=== PATIENT | female | born 1990 | race Caucasian/White ===

== ENCOUNTER 2022-04-22 19:25 | Emergency (ER) | payer OTHER ==
--- NOTE | 2022-04-22 19:51 | ED Trauma-Burn/Chemical Inh ---
HPI-Trauma Burn/Chemical Inh General Stated Complaint: WC, R HAND FINGERS BURN Source: patient History of Present Illness Date Seen by Provider: Apr 22, 2022 Time Seen by Provider: 19:32 Initial Comments 31-year-old female presenting with complaints of burn with grease to her right hand and forearm. 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 She had got grease onto the back of her index middle and ring fingers. She also has a small burn to her right forearm. She has no blistering at this point but severe pain. There is mild redness and area that looks like it is about to blister. She is able to move her fingers but feels like there is some swelling. As well as she has pain when she tries to move her fingers. She is right-hand dominant. Occurred: just prior to arrival Burn Type: Scald Burn (Grease burn) Severity: severe Pain/Injury Location: upper extremity (Right hand and forearm) Loss of Consciousness: no loss of consciousness Associated Symptoms (Fall): No Abdominal Pain, No Chest Pain, No Confusion, No Dizziness, No Headache, No Lightheadedness, No Muscle Spasms, No Nausea/Vomiting, No Neck Pain, No Ringing in Ears, No Seizures, No Shortness of Air, No Slurred Speech, No Trouble Walking, No Vision Changes Allergies and Home Medications Allergies Coded Allergies: No Known Drug Allergies (Unverified , 02/05/22) Patient Home Medication List Home Medication List Reviewed: Yes Hydrocodone/Acetaminophen (Hydrocodone-Acetamin 5-325 mg) 5 Mg-325 Mg Tablet, 1 TAB PO Q6H PRN for PAIN-SEVERE (8-10) Prescribed by: MARY TREVIZO on 04/22/221952 Review of Systems Review of Systems Constitutional: No chills, No fever Eyes: No Symptoms Reported Ears: No Symptoms Reported Nose: No Symptoms Reported Mouth: No Symptoms Reported Throat: No Symptoms to Report Respiratory: no symptoms reported Cardiovascular: No Symptoms Reported Gastrointestinal: no symptoms reported Genitourinary: no symptoms reported Musculoskeletal: no symptoms reported Skin: see HPI Psychiatric/Neurological: Anxiety Past Zvlebpr-Mjqrhc-Nqcsot Hx Patient Social History Tobacco Use?: No Use of E-Cig and/or Vaping dev: No Alcohol Use?: No Immunizations Up To Date Second COVID19 Vaccination Andres: Pfizer, pt unsure of date Physical Exam-Burn/Chemical In Physical Exam Vital Signs Capillary Refill : Height, Weight, BMI Height: '" Weight: lbs. oz. kg; 31.00 BMI Method: General Appearance: WD/WN, mild distress Head: No Evidence of Injury Eyes: Bilateral Eye PERRL, Bilateral Eye EOMI Ears, Nose, Throat: Hearing Grossly Normal, No Evidence of ENT Injury Neck: non-tender, full range of motion, supple Cardiovascular: normal peripheral pulses Extremities: normal range of motion, normal capillary refill Neurologic/Psychiatric: no motor/sensory deficits, alert, oriented x 3 Skin: warm/dry, other (Erythema to the extensor surface of the right index, middle, ring fingers. There is blanching of the skin still. She has increased pain with movement and palpation. There is also a small linear burn that is erythematous on her right forearm on the flexor surface.) Eyal Coma Score Best Eye Response (Eyal): (4) Open Spontaneously Best Verbal Response ([place]): (5) Oriented Best Motor Response (Eyal): (6) Obeys Commands [place] Total: 15 Progress/Results/Core Measures Results/Orders My Orders Orders - MARY TREVIZO MD Wound Dressing-Ed (04/22/22 19:42) Rx-Hydrocodone/Apap 5-325 Mg (Rx-Vicodin (04/22/22 19:45) Medications Given in ED Current Medications Medications Dose Ordered Sig/Isabelle Route Start Time Stop Time Status Last Admin Dose Admin Acetaminophen/ Hydrocodone Bitart 1 ea Q4H PRN PO 04/22/22 19:45 04/22/22 19:55 1 EA Progress Progress Note : Progress Note Clean the alvarado and then dressed with antibiotic ointment and a clean dry dressing. Counseled on follow-up and return precautions. Advised to keep the dressing clean and dry while at work. Departure Impression Primary Impression: First degree burn multiple fingers right hand not including thumb Qualified Codes: T23.131A - Burn of first degree of multiple right fingers (nail), not including thumb, initial encounter Additional Impressions: Burn of first degree of right forearm, initial encounter Second degree burn of multiple fingers of right hand excluding thumb Qualified Codes: T23.231A - Burn of second degree of multiple right fingers (nail), not including thumb, initial encounter Disposition: 01 HOME, SELF-CARE Condition: Stable Departure-Patient Inst. Decision time for Depature: 19:53 Referrals: NO,LOCAL PHYSICIAN (PCP) [place] Care Physician [facility] [place] [facility] [place] [phone] to establish care or follow-up with the work comp clinic as directed by your employer Patient Instructions: Minor Skin Alvarado ED Add. Discharge Instructions: Keep the alvarado dressed with a clean dry dressing that you change at least once a day. You could continue to work but you will need to keep the dressing clean and dry. Watch for signs of infection or increased swelling and pain. Check back with work comp clinic for continued concerns Scripts Hydrocodone/Acetaminophen (Hydrocodone-Acetamin 5-325 mg) 5 Mg-325 Mg Tablet 1 TAB PO Q6H PRN for PAIN-SEVERE (8-10) for 3 Days, #12 TAB 0 Refills Prov: MARY TREVIZO MD 04/22/22 MARY TREVIZO MD Apr 22, 2022 19:51
[2022-04-22] MEDS ORDERED: ACHD5005 PO (19:52)
[2022-04-22 20:15] VITALS: BP 142/99
== END 2022-04-22 20:15 | disposition home or self-care (01) ==
LOC: EDUNIT# 19:25 → ER FS 19:27
DX: T23.231A Burn of second degree of multiple right fingers (nail), not including thumb, initial encounter (principal); T22.111A Burn of first degree of right forearm, initial encounter; X10.2XXA Contact with fats and cooking oils, initial encounter
CPT/HCPCS: 99282; A6223

== ENCOUNTER 2022-12-24 07:43 | Emergency (ER) | payer OTHER ==
[~2022-12-24 07:43] MED LIST: ACHD5005 PO
--- NOTE | 2022-12-24 08:17 | ED Head Injury ---
General Chief Complaint: Head/Cervical Problems Stated Complaint: [place]; HEAD INJ Nursing Triage Note: PT REPORTS SHE HIT THE BACK OF HER HEAD ON A SHELF LAST WEDNESDAY AND HAS HAD A HEADACHE OFF AND ON SINCE. LAST PM SHE FELT NAUSEATED SO SHE WENT TO URGENT CARE THIS AM AND THEY SENT HER TO ER. Source: patient History of Present Illness Date Seen by Provider: Dec 24, 2022 Time Seen by Provider: 07:55 Initial Comments 32-year-old female presenting with complaints of headache from head injury last at work. She states that she works at [email or web address] and had been bent over at work and when she went to stand up she accidentally hit her head against a metal rack on the back of her head. She denies any loss of consciousness. She was having severe pain right after the accident and had noticed some blurred vision in the next day. She has been able to work all this week but states that last night she started having some nausea and it was worse this morning when she got up. She felt like the nausea got worse after bending over and then standing back up. She did not have any actual emesis. She has not had anything for headache pain since last night around 7 PM. She had been taking acetaminophen and ibuprofen [id number] to help with her symptoms. She had gone to see urgent care this morning because of the nausea and when they asked her about the head injury they decided to have her come to the emergency department for further evaluation. She was not having any continued blurring or change in her vision, vomiting, dizziness, blood or fluid draining from her ears or nose. She does report that she uses a computer screen at work and by the middle of the afternoon and towards the end of her shift she would notice that she was getting worsening headache and some blurred vision. Occurred: last week (12/17) Severity: mild Location: occipital Method of Injury: direct blow Loss of Consciousness: no loss of consciousness Associated Systoms: No Chest Pain, No Cough, No Diaphoresis, No Fever/Chills; Headaches (mild 1 out of 10 today); No Loss of Appetite, No Malaise, No Rash, No Seizure, No Shortness of Air, No Syncope, No Weakness Allergies and Home Medications Allergies Coded Allergies: No Known Drug Allergies (Unverified , 02/05/22) Patient Home Medication List Home Medication List Reviewed: Yes Discontinued Medications Hydrocodone/Acetaminophen (Hydrocodone-Acetamin 5-325 mg) 5 Mg-325 Mg Tablet, 1 TAB PO Q6H PRN for PAIN-SEVERE (8-10) Prescribed by: MARY TREVIZO on 04/22/221952 Last Action: Discontinued Review of Systems Review of Systems Constitutional: No chills, No dizziness, No fever Eyes: See HPI; Denies Photophobia, Denies Vision Changes Ears, Nose, Mouth, Throat: denies ear pain, denies ear discharge, denies nose pain, denies nose discharge, denies epistaxis Cardiovascular: no symptoms reported Gastrointestinal: see HPI Genitourinary: no symptoms reported Musculoskeletal: no symptoms reported Skin: no symptoms reported Psychiatric/Neurological: See HPI; Denies Numbness, Denies Weakness Endocrine: No Symptoms Reported Hematologic/Lymphatic: No Symptoms Reported; Denies Blood Clots, Denies Easy Bleeding, Denies Easy Bruising Past Bgdxkyj-Yxvxuu-Axdmrg Hx Patient Social History Tobacco Use?: No Use of E-Cig and/or Vaping dev: No Substance use?: No Alcohol Use?: No Pt feels they are or have been: No Immunizations Up To Date First/Initial COVID19 Vaccinat: June 2021 Second COVID19 Vaccination Andres: September 2021 Third COVID19 Vaccination Date: June 2021 Past Medical History Surgeries: No Physical Exam Vital Signs Vital Signs - First Documented 12/24/22 07:54 Temp 36.4 Pulse 71 Resp 16 B/P (MAP) 149/109 (122) Pulse Ox 99 O2 Delivery Room Air Capillary Refill : Less Than 3 Seconds Height, Weight, BMI Height: '" Weight: lbs. oz. kg; BMI Method: General Appearance: WD/WN, no apparent distress HEENT: PERRL/EOMI, normal ENT inspection, TMs normal, pharynx normal; No photophobia; other (Negative valdez sign, negative raccoon sign, no CSF otorrhea, no CSF rhinorrhea. She had mild tenderness to palpation on the left upper occipital area of her back of the head. There is no step-off or crepitus) Neck: non-tender, full range of motion, supple, normal inspection Cardiovascular: normal peripheral pulses, regular rate, rhythm Respiratory: chest non-tender, lungs clear, normal breath sounds Gastrointestinal: normal bowel sounds, non tender, soft, no pulsatile mass Extremities: normal range of motion, non-tender, normal capillary refill Psychiatric: alert, oriented x 3 Cra[place] Nerves: normal hearing, normal speech, PERRL Coordination/Gait: normal gait Motor/Sensory: no motor deficit, no sensory deficit Skin: normal color, warm/dry [place] Coma Score Best Eye Response: (4) Open Spontaneously Best Verbal Response: (5) Oriented Best Motor Response: (6) Obeys Commands Eyal Total: 15 Images 1 - Mildly tender to palpation on the left upper occipital area for school. No crepitus or step-off noted. Negative valdez sign, negative raccoon sign Progress/Results/Core Measures Results/Orders Vital Signs/I&O 12/24/22 12/24/22 07:54 08:18 Temp 36.4 36.4 Pulse 71 71 Resp 16 16 B/P (MAP) 149/109 (122) 149/109 Pulse Ox 99 99 O2 Delivery Room Air Room Air Blood Pressure Mean: 122 Progress Progress Note : Progress Note Potential diagnosis of calvarium fracture, intracranial hemorrhage, concussion, traumatic brain injury. On physical exam and through history patient did not have any loss of consciousness, amnesia about the event, vomiting. I reassured the patient that on exam and through her history she was not exhibiting any signs or indication of a skull fracture or intracranial hemorrhage. I informed her that a concussion could still have similar symptoms. Based off of review of the [place] CT head rules as well as [place] criteria for head injury and traumatic brain injury she was not meeting any criteria to have a CT scan of her head to evaluate for intracranial hemorrhage or skull fracture. Counseled on management of concussion symptoms and advised to limit screen time as well as get plenty of rest and drink plenty of fluids. She states that she already has a prescription for Zofran from urgent care that was sent to [facility]. She denied needing medication while she was here in the ED. Will provide a work note advising her to be off work today and tomorrow to give her a chance to rest and drink plenty of fluids. Avoid screen time to try and give her brain chance to rest and recover more. Advised if she was having worsening symptoms or they were still not improving she may need to follow-up through the clinic as they might need to refer her to a neurologist or traumatic brain injury doctor. Departure Impression Primary Impression: Concussion without loss of consciousness Qualified Codes: S06.0X0A - Concussion without loss of consciousness, initial encounter Additional Impression: Closed head injury without loss of consciousness Qualified Codes: S09.90XA - Unspecified injury of head, initial encounter Disposition: 01 HOME, SELF-CARE Condition: Stable Departure-Patient Inst. Decision time for Depature: 08:15 Referrals: YAMILKA MYERS MD NO,LOCAL PHYSICIAN (PCP) Primary Care Physician Patient Instructions: Minor Head Injury, Adult ED, Concussion, Adult ED Add. Discharge Instructions: Stay well-hydrated and drink plenty of fluids. Try and get plenty of rest to help heal from the head injury. Use the nausea medicine that was prescribed by urgent care to help keep your stomach settled. Try to limit the time that you spend on a computer or using your phone as screen time can prolong and exacerbate your concussion symptoms. If your symptoms are worsening instead of improving then return or check back with the clinic as you may need to see a specialist with neurology or head in jury specialist. All discharge instructions reviewed with patient and/or family. Voiced understanding. Work/School Note: Work Release Form Date Seen in the Emergency Department: Dec 24, 2022 Return to Work: Dec 28, 2022 Restrictions: No Restrictions MARY TREVIZO MD Dec 24, 2022 08:17
[2022-12-24 08:18] VITALS: BP 149/109
== END 2022-12-24 08:19 | disposition home or self-care (01) ==
LOC: EDUNIT# 07:43 → ER FS 07:45
DX: S06.0X0A Concussion without loss of consciousness, initial encounter (principal); Z28.310 Unvaccinated for COVID-19; W22.8XXA Striking against or struck by other objects, initial encounter; Y92.59 Other trade areas as the place of occurrence of the external cause; Y99.0 Civilian activity done for income or pay
CPT/HCPCS: 99281